=== PATIENT | female | born 1980 | race Two or more races ===

== ENCOUNTER 2023-11-15 18:04 | Emergency (ER) | payer MEDICAID, OTHER ==
[~2023-11-15] VITALS: Ht 167.6 cm; Wt 122.5 kg
[2023-11-15 18:23] VITALS: TEMP 98
[2023-11-15] MEDS: TraMADol HCL 50 MG TABLET PO ONE (18:54)
[2023-11-15] MEDS: BUPIVACAINE HCL/PF 0.25% 10 ML VIAL IARTIC ONE (20:47)
[2023-11-15] MEDS: LIDOCAINE 1% 10 ML VIAL IM ONE (20:49)
[2023-11-15] MEDS ORDERED: TRAM50TA5 PO (23:11)
[2023-11-15 23:32] VITALS: BP 137/77; PULSE 73; RESP 18
== END 2023-11-15 23:34 | disposition home or self-care (01) ==
LOC: EMS 18:10
DX: S63.286A Dislocation of proximal interphalangeal joint of right little finger, initial encounter (principal); E11.9 Type 2 diabetes mellitus without complications; I10 Essential (primary) hypertension; W01.198A Fall on same level from slipping, tripping and stumbling with subsequent striking against other object, initial encounter; Y93.89 Activity, other specified; Y92.830 Public park as the place of occurrence of the external cause; Y99.8 Other external cause status
CPT/HCPCS: 99284; 26770; 72100; 73120; 73130; 73562; J3490 ×2